=== PATIENT | male | born 1940 | race Caucasian/White ===

== ENCOUNTER 2016-11-05 10:22 | Emergency (ER) | payer MEDICARE, BC ==
--- NOTE | ~2016-11-05 | CON ---
[facility] 76 Y [address] ROOM: [place] [address] LOCATION: [facility] ADMIT DATE: 11/05/2016 Consultation DISCHARGE DATE: 11/05/2016 FAMILY PHYSICIAN: PHYSICIAN, DONELL ATTENDING PHYSICIAN: Herlinda Boyd DATE OF CONSULTATION: 11/05/2016 EMERGENCY ROOM CONSULTATION TIME OF EVALUATION: 11:00 a.m. HISTORY OF PRESENT ILLNESS: Mr. Neville is a healthy 76-year-old right-handed white male, he was on a motorcycle trip and stopped in [place] to participate in the [place]. He was in a tennis tournament, and fell on his right hand, had an open dislocation of the PIP joint. Denies any other injury. MEDICATIONS: None. ALLERGIES: NONE. PAST MEDICAL HISTORY: He is healthy. SOCIAL HISTORY: Does not smoke. No alcohol today. No drug abuse. REVIEW OF SYSTEMS: As above. FAMILY MEDICAL HISTORY: Noncontributory. PERSONAL AND SOCIAL HISTORY: He is retired from the [email or web address] business, lives in [facility]. , his is with him. PHYSICAL EXAMINATION: GENERAL: White male, in no acute distress. HEENT: Hears and sees. HEART: Pulse rate is regular. PATIENT'S NAME: TATIANA NEVILLE [facility] AGE: 76 Y [address] ROOM: [place] [address] LOCATION: [facility] ADMIT DATE: 11/05/2016 Consultation DISCHARGE DATE: 11/05/2016 FAMILY PHYSICIAN: PHYSICIAN, DONELL ATTENDING PHYSICIAN: Herlinda Boyd LUNGS: Able to take in a deep breath. ABDOMEN: Soft. EXTREMITIES: Right hand 1 cm oblique volar laceration over the proximal flange. The head of the proximal flange is exposed and deformity of the finger from dislocation. Finger is neurovascularly intact. DIAGNOSTIC DATA: X-rays; no fracture or dislocation. ASSESSMENT AND PLAN: Open dislocation of the right hand 5th finger proximal phalange without neurovascular injury. We irrigated, debrided, closed the relocation, closed the laceration, and splinted. This procedure was done without complication. X-ray was taken after the procedure. It showed a concentric reduction of the right small finger PIP. No fracture is again evident. A dry dressing placed in a 30-degree extension stop splint on the right small finger PIP dorsum. Instructed to ice and elevate, light activity for 48 hours. [place] for pain if needed. Keflex 500 mg 4 times a day for 2 days. Recommend following up in my office at 9:30 a.m. on 11/07/2016 for wound check. All questions were answered. He understands the small risk of infection, needs to be observed, and should complete his antibiotics and keep it elevated to avoid swelling. We will keep in the extension stop brace to give time for the volar plate to heal. Also understands even with the best result, there will be some stiffness. KURTIS CHAMORRO MD DPM/tonny /[id number] d: 11/05/16 1355 t: 11/06/16 1007, CONSULTATION REPORT
--- NOTE | ~2016-11-05 | ER ---
[facility] AGE[facility] 76 Y [address] ROOM: [place] [address] LOCATION: [facility] ADMIT DATE: 11/05/2016 ER/Outpatient Report DISCHARGE DATE: 11/05/2016 FAMILY PHYSICIAN: PHYSICIAN, NO ATTENDING PHYSICIAN: Herlinda Boyd TIME OF ARRIVAL: 1022 hours. TIME SEEN: 1025 hours. IDENTIFICATION: A 76-year-old male. CHIEF COMPLAINT: Right fifth finger injury. HISTORY OF PRESENT ILLNESS: The patient is a 76-year-old male from [place] who was here playing tennis, went to get a ball, and fell onto his right hand. He presents with an obvious deformity and open wound with open dislocation at the PIP joint. He has no other injuries. He did not hit his head. No loss of consciousness. No other problems or concerns. ALLERGIES: NO KNOWN DRUG ALLERGIES. CURRENT MEDICATIONS: No current medications. PAST MEDICAL PROBLEMS: No medical problems. SOCIAL HISTORY: Last tetanus was within the last 2 years. Tobacco use, denies. Alcohol use, denies. Drug use, denies. PAST SURGICAL HISTORY: Previous bilateral knee replacement 8 years ago. PHYSICAL EXAMINATION: VITAL SIGNS: Height 5 feet 9 inches and weight 85.5 kg. Blood pressure 153/85, pulse 107, respirations 16, temperature 98.4, and saturations 95% on room air. [facility] AGE: 76 Y [address] ROOM: [place] [address] LOCATION: [facility] ADMIT DATE: 11/05/2016 ER/Outpatient Report DISCHARGE DATE: 11/05/2016 FAMILY PHYSICIAN: PHYSICIAN, NO ATTENDING PHYSICIAN: Herlinda Boyd GENERAL: A 76-year-old male, in no acute distress. HEENT: Unremarkable. LUNGS: Clear to auscultation. HEART: Regular rate and rhythm. ABDOMEN: Soft and nondistended. SKIN: [place], warm, and dry. NEURO: No focal deficit. MUSCULOSKELETAL: Right upper extremity, decreased range of motion of his fifth finger, obvious open dislocation with the PIP joint protruding through an open wound on the volar aspect of his fifth finger. Sensation is intact to light touch. IMAGING DATA: X-ray reveals right fifth PIP open dislocation. No obvious fracture. IMPRESSION: Open dislocation, right fifth finger. PLAN: Discussed with Dr. Sarmiento, orthopedic surgeon. I was just putting in a digital block and some local anesthesia. Dr. Sarmiento did closed reduction of the finger, irrigated this out, closed the wound, and planned for Keflex 500 mg q.i.d. [place] for pain if needed. Extension splint applied. Ice, elevate, and follow up with Dr. Sarmiento at 9:30 on 11/07. The patient's tetanus is current. The patient was given 1 g of Ancef IV here in the emergency room. MD RUTH ANN AGUILAR/tonny /[id number] d: 11/05/161832 t: 11/07/162043, OUTPATIENT REPORT
--- NOTE | ~2016-11-05 | OR ---
PATIENT'S NAME: TATIANA RAMON [facility] AGE: 76 Y [address] ROOM: [place] [address] LOCATION: [facility] ADMIT DATE: 11/05/2016 OR/Procedure Report DISCHARGE DATE: 11/05/2016 FAMILY PHYSICIAN: PHYSICIAN, NO ATTENDING PHYSICIAN: Herlinda Boyd SURGEON: Kurtis Sarmiento MD MANAGER INFRASTRUCTURE: DATE OF PROCEDURE: 11/05/2016 DIAGNOSIS: Open dislocation, right small finger proximal interphalangeal joint. PROCEDURE: Irrigation and debridement, open relocation, examination and closure of the wound. ANESTHESIA: Dr. Boyd applied digital nerve blocks to the base of the right small finger with good anesthesia. INDICATION: Open dislocation for irrigation and debridement, open relocation, and closure of the wound and placement of a splint. Risks, benefits, and alternatives were discussed. DESCRIPTION OF PROCEDURE: Digital nerve block had been placed. The finger was prepped with Betadine. Limited debridement. Irrigated with a liter of normal saline with a blunt needle and syringe with pulsatile action. The dislocation was easily relocated and placed through a full range of motion. The volar plate was not interposed. The collateral ligaments were stable. He was able to demonstrate full active extension of the PIP and DIP and also demonstrated function of the flexor digitorum profundus and superficialis with full flexion of both PIP and DIP. Wound was closed with 4-0 nylon simple sutures. Dry sterile dressing placed. X-ray was taken, which showed a concentric reduction, and again, no fracture. A dorsal extension stop brace limiting 30 degrees was placed. Procedure was done without complication. KURTIS SARMIENTO MD DPM/modl /[id number] d: 11/05/16 1338 t: 11/06/16 1004, OPERATIVE SUMMARY
== END 2016-11-05 12:33 | disposition disaster alternative care site (69) ==
LOC: GACC 10:22
PROC: 0RSWXZZ Reposition Right Finger Phalangeal Joint, External Approach (ICD-10-PCS; principal; 2016-11-05)
PROC: 0HQFXZZ Repair Right Hand Skin, External Approach (ICD-10-PCS; 2016-11-05)
DX: S63.286A Dislocation of proximal interphalangeal joint of right little finger, initial encounter (principal); Z96.653 Presence of artificial knee joint, bilateral; W18.30XA Fall on same level, unspecified, initial encounter; Y93.73 Activity, racquet and hand sports
CPT/HCPCS: J0690